=== PATIENT | male | born 1995 | race Caucasian/White ===

== ENCOUNTER 2018-01-02 23:36 | Emergency (ER) | payer SELFPAY ==
[2018-01-02] MEDS ORDERED: POVIDONE IODINE 10 % 15 ML UD TOP ONE (23:50)
[2018-01-02] MEDS ORDERED: SULFA/TRIMETH 800/160 (DS) TAB 1 EA TAB PO ONE (23:54)
[2018-01-03] MEDS ORDERED: LIDOCAINE 1% 2 ML VIAL INJ ONE (00:06)
[2018-01-03 00:14] VITALS: BP 147/74; TEMP 98.2; O2SAT 96
--- NOTE | 2018-01-03 00:15 | ED.PDOC ---
History of Present Illness - General Chief Complaint: Laceration Stated Complaint: hand laceration Time Seen by Provider: 01/02/18 23:54 Source: patient Exam Limitations: no limitations - History of Present Illness Initial Comments: the patient is a 22-year-old male presented to the emergency room secondary to a 1.3 cm laceration to the webbing of his left hand between his first and second digit. He managed to stab it there with a dull knife while cutting a zip tie. He is neurovascularly intact. Tendons appear to be intact. no other injjuries. Timing/Duration: momentarily Severity: mild Improving Factors: nothing Worsening Factors: nothing Associated Symptoms: denies symptoms Home Medications: Ambulatory Orders Sulfa/Trimeth 800/160 (Ds) Tab [Bactrim DS Tab] 1 ea PO DAILY #5 tab 01/03/18 Review of Systems - Review of Systems Constitutional: States: no symptoms reported EENTM: States: no symptoms reported Respiratory: States: no symptoms reported Cardiology: States: no symptoms reported Gastrointestinal/Abdominal: States: no symptoms reported Genitourinary: States: no symptoms reported Musculoskeletal: States: no symptoms reported Skin: States: see HPI Neurological: States: no symptoms reported Endocrine: States: no symptoms reported All other Systems: No Change from Baseline Physical Exam - Physical Exam General Appearance: Alert, Comfortable, No apparent distress Eye Exam: bilateral normal Ears, Nose, Throat: hearing grossly normal Neck: full range of motion Respiratory: no respiratory distress, no accessory muscle use Cardiovascular/Chest: normal peripheral pulses, no edema Peripheral Pulses: radial,right: 2+, radial,left: 2+ Rectal Exam: deferred Extremity: normal range of motion, no pedal edema, normal capillary refill 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 After risk and benefits of repair were explained, the patient did agree to proceed. 250 cc of saline with Betadine were used for irrigation. 2 simple sutures of 4-0 Ethilon were placed for reapproximation. He needs to keep this covered with a Band-Aid and triple antibiotic ointment. He is up-to- date on his tetanus. He will be placed on Bactrim DS one by mouth daily for the next 5 days with the first dose given now. He does need to take this medication with food. ER warnings were given for any significant worsening. Sutures need to come out in 8-10 days. Monitor for any evidence of infection. Departure - Departure Clinical Impression: Accidental laceration Disposition: Discharge to Home or Self Care Condition: Fair Departure Forms: ED Discharge - Pt. Copy, Patient Portal Self Enrollment Instructions: DI for Laceration Repair, DI for Laceration Repair -- Simple Diet: regular diet Activity: increase activity as tolerated Prescriptions: Sulfa/Trimeth 800/160 (Ds) Tab [Bactrim DS Tab] 1 ea PO DAILY #5 tab Home Medications: Ambulatory Orders Sulfa/Trimeth 800/160 (Ds) Tab [Bactrim DS Tab] 1 ea PO DAILY #5 tab 01/03/18 Additional Instructions: the patient is a 22-year-old male presenting to the emergency room secondary to a laceration to the webbing of his left hand between the first and second digit. After risk and benefits of repair were explained, the patient did agree to proceed. 250 cc of saline with Betadine were used for irrigation. 2 simple sutures of 4-0 Ethilon were placed for reapproximation. He needs to keep this covered with a Band-Aid and triple antibiotic ointment. He is up-to- date on his tetanus. He will be placed on Bactrim DS one by mouth daily for the next 5 days with the first dose given now. He does need to take this medication with food. ER warnings were given for any significant worsening. Sutures need to come out in 8-10 days. Monitor for any evidence of infection.
[2018-01-03] MEDS ORDERED: NEOMYCIN-BACITRACIN-POLYMYXIN 0.9 GM UD TOP ONE (00:20)
== END 2018-01-03 00:31 | disposition home or self-care (01) ==
LOC: ER 23:36
DX: S61.412A Laceration without foreign body of left hand, initial encounter (principal); W26.0XXA Contact with knife, initial encounter; Y92.9 Unspecified place or not applicable